=== PATIENT | male | born 1940 | race Caucasian/White ===

== ENCOUNTER 2017-11-04 17:51 | Inpatient (IN) | payer MEDICARE ==
[~2017-11-04] VITALS: Ht 177.8 cm; Wt 80.7 kg
[2017-11-04 18:29] LABS: BASOPHILS % (AUTO) 0.3 % (0.0-5.0); EOSINOPHILS % (AUTO) 0.1 % (0.0-8.0); HEMATOCRIT 45.3 % (42-54); MEAN CORPUSCULAR HEMOGLOBIN 32.2 pg (27.0-33.0); MONOCYTES % (AUTO) 13.4 % (3.0-13.0); NEUTROPHILS % (AUTO) 74.2 % (40.0-77.0); PLATELET COUNT (AUTO) 188 K/uL (130-400); RED BLOOD CELL COUNT(AUTO) 4.92 MIL/uL (4.50-6.20); RED CELL DISTRIBUTION WIDTH 12.5 % (11.0-15.5); WHITE BLOOD COUNT (AUTO) 10.9 K/uL (4.8-10.8)
[2017-11-04 18:46] LABS: ALBUMIN 3.3 g/dL (3.5-5.0); BILIRUBIN,TOTAL 0.5 mg/dL (0.2-1.0); TOTAL PROTEIN, SERUM 6.8 g/dL (6.0-8.3)
[2017-11-04] MEDS ORDERED: DICYCLOMINE HCL 10 MG/ML 2ML AMP IM ONE (22:13)
[2017-11-04] MEDS ORDERED: IOPAMIDOL-370 75 ML VIAL IV ONE (22:25)
[2017-11-05] MEDS: SODIUM CHLORIDE 0.9% 1000ML 1,000 ML IV SCH ×3 (00:45→19:58)
[2017-11-05] MEDS ORDERED: CEFTRIAXONE 1GM/D5W 50ML 50 ML IV SCH (02:15)
[2017-11-05] MEDS ORDERED: KETOROLAC TROMETHAMINE 30MG/ML IV PRN (02:15)
[2017-11-05] MEDS ORDERED: ONDANSETRON HCL 4 MG/2 ML VIAL IVP PRN (02:15)
[2017-11-05] MEDS ORDERED: CEFAZOLIN SODIUM 1 GM VIAL ONE (02:42)
[2017-11-05] MEDS ORDERED: HYDRALAZINE HCL 20 MG/ML VIAL IV PRN (03:15)
[2017-11-05] MEDS ORDERED: SODIUM CHLORIDE 0.9% 1000ML 1,000 ML IV ONE (05:08)
[2017-11-05 05:47] LABS: BASOPHILS % (AUTO) 0.4 % (0.0-5.0); EOSINOPHILS % (AUTO) 0.2 % (0.0-8.0); HEMATOCRIT 44.2 % (42-54); MEAN CORPUSCULAR HEMOGLOBIN 31.4 pg (27.0-33.0); MEAN CORPUSCULAR HGB CONC 34.2 g/dL (32.0-36.0); MEAN CORPUSCULAR VOLUME 91.9 fL (79-99); MONOCYTES % (AUTO) 16.4 % (3.0-13.0); PLATELET COUNT (AUTO) 169 K/uL (130-400); RED BLOOD CELL COUNT(AUTO) 4.81 MIL/uL (4.50-6.20); RED CELL DISTRIBUTION WIDTH 12.5 % (11.0-15.5); WHITE BLOOD COUNT (AUTO) 9.2 K/uL (4.8-10.8)
[2017-11-05 06:10] LABS: ALBUMIN 2.9 g/dL (3.5-5.0); BILIRUBIN,TOTAL 0.4 mg/dL (0.2-1.0); MAGNESIUM 1.9 mg/dL (1.80-2.40); PHOSPHORUS 4.2 mg/dL (2.5-4.9); POTASSIUM 3.9 mmol/L (3.5-5.1)
[2017-11-05 06:14] LABS: INR 0.99 (0.85-1.15); PARTIAL THROMBOPLASTIN TIME 26.7 SEC (26.3-35.5); PROTHROMBIN TIME 10.4 SEC (9.6-11.6)
[2017-11-05 08:21] VITALS: BP 149/87
[2017-11-05] MEDS ORDERED: MAGN400C PO (08:38)
[2017-11-05] MEDS ORDERED: FINA5TAB41 PO (08:38)
[2017-11-05] MEDS ORDERED: MULT-1289 PO (08:38)
[2017-11-05] MEDS ORDERED: LOSA100T29 PO (08:38)
[2017-11-05] MEDS ORDERED: ASCO500C18 PO (08:38)
[2017-11-05] MEDS ORDERED: FOLI0.8T PO (08:38)
[2017-11-05] MEDS ORDERED: ZINC50TA64 PO (08:38)
[2017-11-05] MEDS ORDERED: ATOR10 PO (08:38)
[2017-11-05] MEDS ORDERED: TAMS0.4C32 PO (08:38)
[2017-11-05] MEDS ORDERED: GINK30CA3 PO (08:38)
[2017-11-05] MEDS ORDERED: ASPI-555 PO (08:38)
[2017-11-05] MEDS ORDERED: CEFAZOLIN 1GM / D5W 50ML 50 ML IV SCH (09:00)
[2017-11-05] MEDS: FAMOTIDINE/PF 20 MG/2 ML VIAL IV SCH ×2 (09:00→19:58)
[2017-11-05] MEDS: CEFAZOLIN SODIUM 1 GM VIAL IVP SCH ×2 (09:00→19:58)
[2017-11-05 11:01] VITALS: BP 162/73
[2017-11-05 15:20] VITALS: BP 149/75
[2017-11-05] MEDS: ENOXAPARIN SODIUM 40 MG/0.4 ML SYRINGE SQ SCH (17:24)
[2017-11-05] MEDS: TAMSULOSIN HCL 0.4 MG CAP.ER.24H PO SCH (19:12)
[2017-11-05 20:00] VITALS: BP 135/69
[2017-11-05] MEDS ORDERED: ATORVASTATIN CALCIUM 10 MG TABLET PO SCH (21:00)
[2017-11-05] MEDS ORDERED: MAGNESIUM OXIDE 400 MG TABLET PO SCH (21:00)
[2017-11-06] VITALS: BP 148/74
[2017-11-06 04:00] VITALS: BP 133/63
[2017-11-06 05:27] LABS: HEMATOCRIT 38.1 % (42-54); MEAN CORPUSCULAR HEMOGLOBIN 32.9 pg (27.0-33.0); MEAN CORPUSCULAR HGB CONC 35.6 g/dL (32.0-36.0); MEAN CORPUSCULAR VOLUME 92.2 fL (79-99); PLATELET COUNT (AUTO) 166 K/uL (130-400); RED BLOOD CELL COUNT(AUTO) 4.13 MIL/uL (4.50-6.20); RED CELL DISTRIBUTION WIDTH 12.5 % (11.0-15.5); WHITE BLOOD COUNT (AUTO) 8.1 K/uL (4.8-10.8)
[2017-11-06 05:35] LABS: CREATININE 0.9 mg/dL (0.5-1.5); POTASSIUM 3.5 mmol/L (3.5-5.1)
[2017-11-06 07:00] VITALS: BP 142/56
[2017-11-06] MEDS: FAMOTIDINE/PF 20 MG/2 ML VIAL IV SCH (07:48)
[2017-11-06] MEDS: ENOXAPARIN SODIUM 40 MG/0.4 ML SYRINGE SQ SCH (07:48)
[2017-11-06] MEDS: CEFAZOLIN SODIUM 1 GM VIAL IVP SCH (07:49)
[2017-11-06] MEDS: TAMSULOSIN HCL 0.4 MG CAP.ER.24H PO SCH (07:49)
[2017-11-06] MEDS ORDERED: ASPIRIN 81 MG EC TAB PO SCH (09:00)
[2017-11-06] MEDS ORDERED: FINASTERIDE 5 MG TABLET PO SCH (09:00)
[2017-11-06] MEDS ORDERED: TAMSULOSIN HCL 0.4 MG CAP.ER.24H PO SCH (09:00)
[2017-11-06] MEDS ORDERED: LOSARTAN 100 MG TABLET PO SCH (09:00)
[2017-11-06 11:15] VITALS: BP 160/81
== END 2017-11-06 13:22 | disposition home or self-care (01) | DRG 390 ==
LOC: EDH 17:51 → EDHIP 11-05 00:09 → 4BH 11-05 07:38
PROVIDERS: ADMIT Family Medicine; ATTEND Family Medicine
DX: K56.609 Unspecified intestinal obstruction, unspecified as to partial versus complete obstruction (principal); E78.5 Hyperlipidemia, unspecified; K56.7 Ileus, unspecified; I10 Essential (primary) hypertension; N40.0 Benign prostatic hyperplasia without lower urinary tract symptoms
CPT/HCPCS: 36415; 74021; 74177; 80048; 80053; 83735; 84100; 85025; 85027; 85610; 85730; J0500; J0690; J0696; J1650; J3490; J7030; Q9967